=== PATIENT | female | born 1960 | race African-American/Black ===

== ENCOUNTER 2020-09-22 05:07 | Day surgery (SDC) | payer OTHER ==
[2020-09-21 13:52] VITALS: BMI 28.3
[2020-09-22 09:27] VITALS: TEMP 97.7
[2020-09-22 14:13] VITALS: BP 119/67; PULSE 69
== END 2020-09-22 10:30 | disposition home or self-care (01) ==
LOC: JASU-ENDO 05:07
PROVIDERS: ATTEND Internal Medicine Gastroenterology
PROC: 0DBP8ZX Excision of Rectum, Via Natural or Artificial Opening Endoscopic, Diagnostic (ICD-10-PCS; principal; 2020-09-22 09:15)
DX: D12.8 Benign neoplasm of rectum (principal); K57.30 Diverticulosis of large intestine without perforation or abscess without bleeding
CPT/HCPCS: 88305-TC